=== PATIENT | male | born 1975 | race Caucasian/White ===

== ENCOUNTER → 2023-11-05 | Outpatient (CLI) | payer BC | LOC: LAB 13:52 | DX: Z13.220 Encounter for screening for lipoid disorders (principal); Z13.1 Encounter for screening for diabetes mellitus ==

== ENCOUNTER → 2024-11-05 | Outpatient (CLI) | payer BC | LOC: LAB 09:39 | DX: E78.2 Mixed hyperlipidemia (principal) ==